=== PATIENT | male | born 1955 | race Caucasian/White ===

== ENCOUNTER 2023-03-14 02:30 | Inpatient (IN) | payer MEDICARE, OTHER ==
[~2023-03-14] VITALS: Ht 170.2 cm; Wt 72.6 kg
[2023-03-14] MEDS ORDERED: ONDANSETRON 4 MG/2 ML VIAL IV ONE (02:45)
[2023-03-14] MEDS ORDERED: HYDROMORPHONE 1 MG/1 ML DISP.SYRIN IV ONE (02:45)
[2023-03-14] MEDS ORDERED: IV NS 1000 ML 1,000 ML IV ONE (02:45)
[2023-03-14] MEDS ORDERED: ONDANSETRON 4 MG/2 ML VIAL ONE (02:54)
[2023-03-14] MEDS ORDERED: HYDROMORPHONE 1 MG/1 ML DISP.SYRIN ONE (02:55)
[2023-03-14] MEDS ORDERED: CHOLECALCIFEROL 1,000 UNIT TABLET ONE ×2 (02:55→09:22)
[2023-03-14] MEDS: CHOLECALCIFEROL 1,000 UNIT TABLET PO SCH ×2 (03:03→09:27)
[2023-03-14 03:06] LABS: HEMATOCRIT 26.9 % (36.7-47.1); MEAN CORPUSCULAR HEMOGLOBIN 29.8 uug (23.8-33.4); MEAN CORPUSCULAR VOLUME 89.4 fL (73.0-96.2); PLATELET COUNT (AUTO) 55 K/uL (152-348)
[2023-03-14 03:25] LABS: CREATININE 0.7 mg/dL (0.6-1.3)
[2023-03-14 03:26] LABS: POTASSIUM 2.4 mmol/L (3.5-5.1)
[2023-03-14] MEDS ORDERED: POTASSIUM BICARBONATE/CIT AC 25 MEQ TABLET.EFF ONE (03:29)
[2023-03-14] MEDS ORDERED: POTASSIUM BICARBONATE/CIT AC 25 MEQ TABLET.EFF PO ONE (03:30)
[2023-03-14] MEDS ORDERED: MAGNESIUM SULFATE/D5W 300 ML ONE (04:17)
[2023-03-14] MEDS: MAGNESIUM SULFATE/D5W 100 ML IV SCH ×2 (04:34→07:02)
[2023-03-14 04:45] LABS: *BILIRUBIN,URIN NEGATIVE (NEGATIVE); *BLOOD, URINE NEGATIVE (NEGATIVE); *CLARITY,URINE CLEAR (CLEAR); *COLOR,URINE YELLOW (YELLOW); *KETONES,URINE NEGATIVE (NEGATIVE); LEUKOCYTE ESTERASE ,URINE NEGATIVE (NEGATIVE); NITRITE, URINE NEGATIVE (NEGATIVE); PH,URINE 6.5 (5.0-8.0); UGLUCOSE NEGATIVE (NEGATIVE)
[2023-03-14] MEDS ORDERED: KETOROLAC TROMETHAMINE 15 MG INJ IVP ONE (05:15)
[2023-03-14] MEDS ORDERED: KETOROLAC TROMETHAMINE 15 MG INJ ONE (05:19)
[2023-03-14] MEDS ORDERED: IV NORMAL SALINE 250 ML IV ONE (06:32)
[2023-03-14] MEDS ORDERED: IOHEXOL 350 100 ML INFUS..BTL ONE (06:32)
[2023-03-14] MEDS ORDERED: SWABABLE VALVE TRANSFER SET EA MC ONE (06:32)
[2023-03-14] MEDS ORDERED: POTASSIUM CHLORIDE 250 ML ONE (08:20)
[2023-03-14] MEDS: POTASSIUM CHLORIDE 50 ML IV SCH ×4 (08:30→12:34)
[2023-03-14 10:11] VITALS: BP 138/77
[2023-03-14] MEDS ORDERED: REMEDY ESSENTIAL ZINC PASTE 113 GM TP PRN (12:00)
[2023-03-14] MEDS ORDERED: ZOLPIDEM 5 MG TABLET PO PRN (12:00)
[2023-03-14] MEDS ORDERED: MAGNESIUM HYDROXIDE 30 ML LIQUID UDC PO PRN (12:00)
[2023-03-14] MEDS ORDERED: ONDANSETRON 4 MG/2 ML VIAL IV PRN (12:00)
[2023-03-14] MEDS: PANTOPRAZOLE SODIUM 40 MG TABLET.DR PO SCH (13:06)
[2023-03-14] MEDS ORDERED: AMIL5TAB9 PO (13:53)
[2023-03-14] MEDS ORDERED: DOCU100C36 PO (13:53)
[2023-03-14] MEDS ORDERED: HYDR25TA4 PO (13:53)
[2023-03-14] MEDS ORDERED: IBUP-1957 PO (13:53)
[2023-03-14] MEDS ORDERED: METO50TA16 PO (13:53)
[2023-03-14] MEDS ORDERED: OXYC5CAP18 PO (13:53)
[2023-03-14] MEDS ORDERED: GABA300C PO (13:53)
[2023-03-14] MEDS: DRONABINOL 2.5 MG CAPSULE PO SCH ×2 (14:50→18:29)
[2023-03-14] MEDS: POTASSIUM CHLORIDE 40 MEQ in IV NS 1000 ML 1,000 ML IV PRN (14:51)
[2023-03-14] MEDS: MORPHINE SULFATE 4 MG/1 ML DISP.SYRIN IV PRN (14:51)
[2023-03-14] MEDS: GABAPENTIN 300 MG CAPSULE PO SCH ×2 (14:51→18:29)
[2023-03-14 16:00] VITALS: BP 128/59
[2023-03-14] MEDS ORDERED: ENOXAPARIN SODIUM 40 MG/0.4 ML DISP.SYRIN SQ SCH (16:00)
[2023-03-14 17:50] VITALS: BP 164/71
[2023-03-14] MEDS: ACETAMINOPHEN 325 MG TABLET PO PRN (18:13)
[2023-03-14] MEDS ORDERED: CLONIDINE HCL 0.1 MG TABLET PO PRN (18:15)
[2023-03-14] MEDS: KETOROLAC TROMETHAMINE 15 MG INJ IVP PRN (19:21)
[2023-03-14 20:00] VITALS: BP 120/63
[2023-03-15] VITALS: BP 124/64
[2023-03-15] MEDS: KETOROLAC TROMETHAMINE 15 MG INJ IVP PRN (02:51)
[2023-03-15 04:00] VITALS: BP 131/62
[2023-03-15] MEDS: PANTOPRAZOLE SODIUM 40 MG TABLET.DR PO SCH (07:03)
[2023-03-15 07:45] LABS: THYROID STIMULATING HORMONE 1.755 mIU/mL (0.358-3.740)
[2023-03-15 08:00] VITALS: BP 139/61
[2023-03-15 08:01] LABS: BILIRUBIN,TOTAL 0.7 mg/dL (0.2-1.0); CREATININE 0.7 mg/dL (0.6-1.3); PHOSPHOROUS 3.5 mg/dL (2.5-4.9); POTASSIUM 3.2 mmol/L (3.5-5.1); TOTAL PROTEIN, SERUM 6.1 g/dL (6.4-8.2)
[2023-03-15] MEDS: POTASSIUM CHLORIDE 40 MEQ in IV NS 1000 ML 1,000 ML IV PRN ×2 (08:20→18:27)
[2023-03-15] MEDS: DRONABINOL 2.5 MG CAPSULE PO SCH ×3 (08:27→17:00)
[2023-03-15] MEDS: GABAPENTIN 300 MG CAPSULE PO SCH ×3 (08:27→17:00)
[2023-03-15] MEDS: MORPHINE SULFATE 4 MG/1 ML DISP.SYRIN IV PRN (08:29)
[2023-03-15 08:37] LABS: HEMATOCRIT 23.6 % (36.7-47.1)
[2023-03-15 08:38] LABS: MEAN CORPUSCULAR HEMOGLOBIN 30.5 uug (23.8-33.4); MEAN CORPUSCULAR VOLUME 90.5 fL (73.0-96.2)
[2023-03-15] MEDS ORDERED: POTASSIUM CHLORIDE 20 MEQ TAB.PRT.SR PO ONE (09:15)
[2023-03-15 10:06] LABS: PLATELET COUNT (AUTO) 48 K/uL (152-348)
[2023-03-15] MEDS ORDERED: NALOXONE HCL 0.4 MG/ML AMPUL IV PRN (11:15)
[2023-03-15 11:42] VITALS: BP 109/60
[2023-03-15] MEDS ORDERED: FENTANYL 25 MCG/HR PATCH EACH TD SCH (12:00)
[2023-03-15 15:59] VITALS: BP 118/47
[2023-03-15 16:55] LABS: NEUTROPHILS % (MANUAL) 75 % (42-75)
[2023-03-15 16:56] LABS: BASOPHILS % (MANUAL) 0 % (0-2); EOSINOPHILS % (MANUAL) 1 % (0-8); LYMPHOCYTES % (MANUAL) 15 % (20-40); MONOCYTES % (MANUAL) 9 % (2-10)
[2023-03-15] MEDS ORDERED: GABAPENTIN 300 MG CAPSULE PO SCH (17:00)
[2023-03-15] MEDS: ACETAMINOPHEN 325 MG TABLET PO PRN (17:28)
[2023-03-15] MEDS ORDERED: ACETAMINOPHEN 650 MG SUPP.RECT RC PRN (17:45)
[2023-03-15] MEDS ORDERED: MEROPENEM 1 G in IV NORMAL SALINE 100 ML IV SCH (19:00)
[2023-03-15] MEDS ORDERED: VANCOMYCIN IV 1,250 MG in IV DEXTROSE 5% 250 ML IV ONE (20:00)
[2023-03-15] MEDS: MEROPENEM 1 G in IV NORMAL SALINE 100 ML IV SCH (20:18)
[2023-03-15 20:20] VITALS: BP 109/60
[2023-03-15] MEDS ORDERED: VANCOMYCIN HCL 500 MG VIAL ONE (20:57)
[2023-03-15] MEDS ORDERED: VANCOMYCIN IV 200 ML ONE (20:58)
[2023-03-15] MEDS: MEDIHONEY= THERAHONEY 1.5 OZ TUBE TOP SCH (22:15)
[2023-03-16 00:09] VITALS: BP_SYST 121; BP_DIAS 61; BP_DIAS 63
[2023-03-16 04:20] VITALS: BP 130/47
[2023-03-16] MEDS ORDERED: POTASSIUM CHLORIDE IV ONE (04:36)
[2023-03-16] MEDS ORDERED: [UNRECOGNIZED DRUG - OTHER] IV ONE (04:36)
[2023-03-16] MEDS ORDERED: SODIUM CHLORIDE IV ONE (04:36)
[2023-03-16] MEDS: MEROPENEM 1 G in IV NORMAL SALINE 100 ML IV SCH ×3 (04:54→20:55)
[2023-03-16] MEDS ORDERED: IV NS + KCL 40 MEQ 1000 ML BAG 1,000 ML IV ONE (04:54)
[2023-03-16] MEDS: POTASSIUM CHLORIDE 40 MEQ in IV NS 1000 ML 1,000 ML IV PRN ×2 (05:08→15:56)
[2023-03-16] MEDS: PANTOPRAZOLE SODIUM 40 MG TABLET.DR PO SCH (06:24)
[2023-03-16 07:44] LABS: HEMATOCRIT 21.7 % (36.7-47.1); MEAN CORPUSCULAR HEMOGLOBIN 30.4 uug (23.8-33.4); MEAN CORPUSCULAR VOLUME 90.8 fL (73.0-96.2)
[2023-03-16 08:08] LABS: PLATELET COUNT (AUTO) 46 K/uL (152-348)
[2023-03-16 08:14] LABS: BILIRUBIN,TOTAL 0.6 mg/dL (0.2-1.0); CREATININE 0.8 mg/dL (0.6-1.3); MAGNESIUM 1.7 mg/dL (1.8-2.4); POTASSIUM 3.6 mmol/L (3.5-5.1); TOTAL PROTEIN, SERUM 5.9 g/dL (6.4-8.2)
[2023-03-16] MEDS: DRONABINOL 2.5 MG CAPSULE PO SCH ×2 (09:11→13:00)
[2023-03-16] MEDS: GABAPENTIN 300 MG CAPSULE PO SCH ×3 (09:11→23:04)
[2023-03-16] MEDS: DOCUSATE SODIUM 100 MG CAPSULE PO SCH (09:11)
[2023-03-16 09:16] VITALS: BP 163/63
[2023-03-16] MEDS: MEDIHONEY= THERAHONEY 1.5 OZ TUBE TOP SCH (10:15)
[2023-03-16] MEDS: ACETAMINOPHEN 325 MG TABLET PO PRN (11:16)
[2023-03-16] MEDS: VANCOMYCIN IV 1,000 MG in IV DEXTROSE 5% 250 ML IV SCH (11:16)
[2023-03-16 11:34] VITALS: BP 144/63
[2023-03-16] MEDS ORDERED: MAGNESIUM OXIDE 400 MG TABLET PO ONE (12:00)
[2023-03-16 15:27] LABS: BAND % (MANUAL) 4 % (0-10); BASOPHILS % (MANUAL) 0 % (0-2); BLASTS, MANUAL % 0 % (0-0); EOSINOPHILS % (MANUAL) 0 % (0-8); LYMPHOCYTES % (MANUAL) 28 % (20-40); METAMYELOCYTES % 0 % (0-1); MONOCYTES % (MANUAL) 6 % (2-10); MYELOCYTES % 0 % (0-0); NEUTROPHILS % (MANUAL) 60 % (42-75); PROMYELOCYTES % 0 %; REACTIVE LYMPHOCYTES 2 % (0-0)
[2023-03-16 16:00] VITALS: BP 153/57
[2023-03-16] MEDS ORDERED: DRONABINOL 2.5 MG CAPSULE PO SCH (17:00)
[2023-03-16 20:54] VITALS: BP 120/64
[2023-03-17] MEDS: ACETAMINOPHEN 325 MG TABLET PO PRN ×3 (00:38→18:14)
[2023-03-17] MEDS: VANCOMYCIN IV 1,000 MG in IV DEXTROSE 5% 250 ML IV SCH ×2 (00:42→17:44)
[2023-03-17 00:50] VITALS: BP 142/50
[2023-03-17] MEDS: POTASSIUM CHLORIDE 40 MEQ in IV NS 1000 ML 1,000 ML IV PRN (04:16)
[2023-03-17] MEDS: MEROPENEM 1 G in IV NORMAL SALINE 100 ML IV SCH ×3 (04:16→20:12)
[2023-03-17 04:55] VITALS: BP 128/63
[2023-03-17] MEDS: PANTOPRAZOLE SODIUM 40 MG TABLET.DR PO SCH (06:02)
[2023-03-17 07:42] LABS: HEMATOCRIT 22.8 % (36.7-47.1); MEAN CORPUSCULAR HEMOGLOBIN 29.7 uug (23.8-33.4); MEAN CORPUSCULAR VOLUME 90.1 fL (73.0-96.2)
[2023-03-17 07:50] LABS: PLATELET COUNT (AUTO) 47 K/uL (152-348)
[2023-03-17] MEDS: GABAPENTIN 300 MG CAPSULE PO SCH ×2 (08:44→20:30)
[2023-03-17] MEDS: DOCUSATE SODIUM 100 MG CAPSULE PO SCH (08:44)
[2023-03-17] MEDS: PROTEIN SUPPLEMENT (PROSTAT) 30 ML LIQUID PO SCH ×3 (08:45→17:44)
[2023-03-17] MEDS: MEDIHONEY= THERAHONEY 1.5 OZ TUBE TOP SCH (08:45)
[2023-03-17 08:54] VITALS: BP 122/51
[2023-03-17 11:08] VITALS: BP 136/45
[2023-03-17] MEDS: DRONABINOL 2.5 MG CAPSULE PO SCH (14:12)
[2023-03-17 15:23] VITALS: BP 155/45
[2023-03-17 15:58] LABS: *OCCULT BLOOD STOOL POSITIVE (NEGATIVE)
[2023-03-17 16:24] LABS: CREATININE 0.7 mg/dL (0.6-1.3); MAGNESIUM 1.8 mg/dL (1.8-2.4); PHOSPHOROUS 3.9 mg/dL (2.5-4.9); POTASSIUM 3.8 mmol/L (3.5-5.1)
[2023-03-17 18:16] LABS: BAND % (MANUAL) 9 % (0-10); LYMPHOCYTES % (MANUAL) 12 % (20-40); METAMYELOCYTES % 2 % (0-1); MONOCYTES % (MANUAL) 7 % (2-10); MYELOCYTES % 3 % (0-0); NEUTROPHILS % (MANUAL) 67 % (42-75)
[2023-03-17 20:02] VITALS: BP 150/68
[2023-03-18] MEDS: MEROPENEM 1 G in IV NORMAL SALINE 100 ML IV SCH ×3 (03:11→21:43)
[2023-03-18 04:41] VITALS: BP 130/56
[2023-03-18] MEDS: PANTOPRAZOLE SODIUM 40 MG TABLET.DR PO SCH (06:43)
[2023-03-18 07:03] LABS: HEMATOCRIT 22.5 % (36.7-47.1); MEAN CORPUSCULAR HEMOGLOBIN 29.9 uug (23.8-33.4); MEAN CORPUSCULAR VOLUME 88.1 fL (73.0-96.2); PLATELET COUNT (AUTO) 57 K/uL (152-348)
[2023-03-18 07:45] VITALS: BP 128/58
[2023-03-18 08:26] LABS: BILIRUBIN,TOTAL 0.5 mg/dL (0.2-1.0); CREATININE 0.8 mg/dL (0.6-1.3); MAGNESIUM 1.8 mg/dL (1.8-2.4); POTASSIUM 3.2 mmol/L (3.5-5.1); TOTAL PROTEIN, SERUM 6.2 g/dL (6.4-8.2)
[2023-03-18] MEDS: DRONABINOL 2.5 MG CAPSULE PO SCH ×2 (08:31→08:36)
[2023-03-18] MEDS: VANCOMYCIN IV 1,000 MG in IV DEXTROSE 5% 250 ML IV SCH ×2 (08:31→21:51)
[2023-03-18] MEDS: DOCUSATE SODIUM 100 MG CAPSULE PO SCH (08:31)
[2023-03-18] MEDS: GABAPENTIN 300 MG CAPSULE PO SCH ×2 (08:31→21:43)
[2023-03-18] MEDS: PROTEIN SUPPLEMENT (PROSTAT) 30 ML LIQUID PO SCH ×3 (08:33→17:42)
[2023-03-18] MEDS: MEDIHONEY= THERAHONEY 1.5 OZ TUBE TOP SCH (08:33)
[2023-03-18] MEDS ORDERED: POTASSIUM CHLORIDE 20 MEQ TAB.PRT.SR PO ONE (10:15)
[2023-03-18 11:39] VITALS: BP 159/66
[2023-03-18] MEDS: ACETAMINOPHEN 325 MG TABLET PO PRN (15:43)
[2023-03-18 16:09] VITALS: BP 129/49
[2023-03-18 20:18] VITALS: BP 124/60
[2023-03-19] MEDS: MEROPENEM 1 G in IV NORMAL SALINE 100 ML IV SCH ×2 (04:17→11:18)
[2023-03-19 04:25] VITALS: BP 119/45
[2023-03-19] MEDS: PANTOPRAZOLE SODIUM 40 MG TABLET.DR PO SCH (06:10)
[2023-03-19 08:03] LABS: *BILIRUBIN,URIN NEGATIVE (NEGATIVE); *BLOOD, URINE NEGATIVE (NEGATIVE); *CLARITY,URINE CLOUDY (CLEAR); *COLOR,URINE YELLOW (YELLOW); *KETONES,URINE NEGATIVE (NEGATIVE); *UROBILINOGEN,URINE 0.2 E.U./dl (NORMAL); LEUKOCYTE ESTERASE ,URINE NEGATIVE (NEGATIVE); NITRITE, URINE NEGATIVE (NEGATIVE); UGLUCOSE NEGATIVE (NEGATIVE)
[2023-03-19] MEDS: GABAPENTIN 300 MG CAPSULE PO SCH ×2 (08:26→08:35)
[2023-03-19] MEDS: DOCUSATE SODIUM 100 MG CAPSULE PO SCH (08:26)
[2023-03-19] MEDS: DRONABINOL 2.5 MG CAPSULE PO SCH ×2 (08:26→08:35)
[2023-03-19] MEDS: PROTEIN SUPPLEMENT (PROSTAT) 30 ML LIQUID PO SCH ×3 (08:26→16:59)
[2023-03-19] MEDS: MEDIHONEY= THERAHONEY 1.5 OZ TUBE TOP SCH (08:27)
[2023-03-19 11:58] VITALS: BP 130/59
[2023-03-19] MEDS ORDERED: GLUCERNA SHAKE 237 ML CAN PO SCH (13:30)
[2023-03-19] MEDS ORDERED: GABA300C PO ×2 (14:06)
[2023-03-19] MEDS ORDERED: Dronabinol PO (14:06)
[2023-03-19] MEDS ORDERED: AMOX-430 PO (14:06)
[2023-03-19 16:00] VITALS: BP 129/44
[2023-03-19] MEDS: ACETAMINOPHEN 325 MG TABLET PO PRN (16:58)
[2023-03-20] MEDS ORDERED: VANCOMYCIN IV 1,000 MG in IV DEXTROSE 5% 250 ML IV SCH ×2 (03:00→06:00)
== END 2023-03-19 19:10 | disposition home health service (06) | DRG 853 ==
LOC: ER 02:38 → MEDSURG3 08:58 → TELE3 09:52 → MEDSURG3 03-17 10:49
PROVIDERS: ADMIT Nurse Practitioner Acute Care; ATTEND Nurse Practitioner Acute Care
PROC: 0KB Muscles, Excision (ICD-10-PCS; principal; 2023-03-16)
DX: A41.9 Sepsis, unspecified organism (principal); G92.8 Other toxic encephalopathy; C79.51 Secondary malignant neoplasm of bone; N39.0 Urinary tract infection, site not specified; C79.9 Secondary malignant neoplasm of unspecified site; T81.83XA Persistent postprocedural fistula, initial encounter; E87.6 Hypokalemia; B95.2 Enterococcus as the cause of diseases classified elsewhere; D69.6 Thrombocytopenia, unspecified; Z85.46 Personal history of malignant neoplasm of prostate; Z90.79 Acquired absence of other genital organ(s); E83.42 Hypomagnesemia; R79.1 Abnormal coagulation profile; G47.00 Insomnia, unspecified; D64.9 Anemia, unspecified; T81.89XA Other complications of procedures, not elsewhere classified, initial encounter; T85.698D Other mechanical complication of other specified internal prosthetic devices, implants and grafts, subsequent encounter; F32.A Depression, unspecified; Z87.891 Personal history of nicotine dependence; G89.3 Neoplasm related pain (acute) (chronic); G89.4 Chronic pain syndrome; E10.9 Type 1 diabetes mellitus without complications; Z20.822 Contact with and (suspected) exposure to COVID-19; Z79.4 Long term (current) use of insulin; Z92.21 Personal history of antineoplastic chemotherapy; I10 Essential (primary) hypertension; R19.5 Other fecal abnormalities; Z79.899 Other long term (current) drug therapy; L98.8 Other specified disorders of the skin and subcutaneous tissue
CPT/HCPCS: 36415; 70030-TC; 71045; 71275; 83550; 83735; 84100; 84443; 85025; 87040; A4663; G0378; J1170; J1650; J1885; J2185; J2270; J2405; J3370; J3475; J3480; J3490; J7040; J7050; Q0167; Q9967